=== PATIENT | female | born 2005 | race Caucasian/White ===

== ENCOUNTER 2025-02-05 15:47 | Emergency (ER) | payer MEDICAID, OTHER ==
[2025-02-05 16:44] LABS: #Basophils 0.03 10x3/uL (0.0-0.2); #Eosinophils 0.03 10x3/uL (0.0-0.5); #Monocytes 0.53 10x3/uL (0.0-1.1); #Neutrophils 5.22 10x3/uL (1.5-8.4); %Basophils 0.4 % (0.0-2.0); %Eosinophils 0.4 % (0.0-6.0); %Lymphocytes 25.3 % (18.0-47.0); %Monocytes 6.8 % (0.0-10.0); %Neutrophils 66.8 % (40.0-75.0); Hematocrit 42.5 % (34.9-44.5); Hemoglobin 14.4 g/dL (12.0-15.5); Leukocyte Negative (Negative); Mean Corpuscular Hemoglobin 29.7 pg (27.0-33.0); Mean Corpuscular Volume 87.6 fL (81.6-98.3); Platelet Count 261 10x3/uL (150-450); Red Blood Cell (RBC) Count 4.85 10x6/uL (3.90-5.03); Specific Gravity, Urine 1.010 (1.005-1.030); White Blood Cell (WBC) Count 7.80 10x3/uL (3.5-10.5)
[2025-02-05 16:45] LABS: Glucose, Urine (Dipstick) Normal (Negative); Protein, Urine (Dipstick) Negative (Neg-Trace)
[2025-02-05 16:53] LABS: Bacteria/HPF 2+ HPF (None Seen); CAUTI Indications for Culture Pelvic or flank pain; RBC/HPF 0-3 HPF (0-3); WBC/HPF 0-3 HPF (0-3)
[2025-02-05 16:54] LABS: BHCG - Serum Negative (NEGATIVE); Pregs Control Background? CLEAR/WHITE (CLR/WHITE); Pregs Control Bar Appear? YES (CONTROL BAR); Urine Culture Reflex No No
[2025-02-05] MEDS ORDERED: Ondansetron PF 4 MG/2 ML Vial ONE (16:55)
[2025-02-05 17:01] LABS: ALT (SGPT) 16 U/L (Less than 34); AST (SGOT) 24 U/L (11-34); Albumin 4.6 g/dL (3.1-4.5); Alkaline Phosphatase 49 U/L (40-100); Anion Gap 14 mmol/L (10-20); BUN (Urea Nitrogen) 11 mg/dL (7.0-18.7); Bilirubin, Total 1.1 mg/dL (0.3-1.2); Calc. Creatinine Clearance 0 mL/min (70-130); Calcium 9.1 mg/dL (7.8-10.44); Carbon Dioxide 23 mmol/L (22-29); Chloride 104 mmol/L (98-107); Globulin 3.4 g/dL (2.4-3.5); Glucose 99 mg/dL (70-105); Lipase 20 U/L (8-78); Potassium 3.8 mmol/L (3.5-5.1); Sodium 137 mmol/L (136-145)
[2025-02-05] MEDS ORDERED: Fluconazole 100 MG TAB PO SCH (18:45)
[2025-02-07 06:59] LABS: Chlamydia by PCR, Vaginal Swab Not Detected (NotDetected); GC by PCR, Vaginal Swab Not Detected (NotDetected)
== END 2025-02-05 19:24 | disposition home or self-care (01) ==
LOC: CSHERS 15:47
DX: B37.31 Acute candidiasis of vulva and vagina (principal)
CPT/HCPCS: 76705; 80053; 81001; 83690; 84703; 85025; 87480; 87491; 87510; 87591; 87660; 96374; J2405

== ENCOUNTER 2025-04-04 17:26 | Emergency (ER) | payer OTHER ==
[2025-04-05 16:04] LABS: GC by PCR, EndoCx Swab Not Detected (NotDetected)
== END 2025-04-04 18:22 | disposition home or self-care (01) ==
LOC: CSHERS 17:26
DX: N76.0 Acute vaginitis (principal)
CPT/HCPCS: 87480; 87510; 87591; 87660; 99283